=== PATIENT | female | born 1930 | race Caucasian/White ===

== ENCOUNTER 2018-12-22 20:36 | Inpatient (IN) ==
[2018-12-22] MEDS ORDERED: APRESOLINE IV ONE (21:03)
[2018-12-22] MEDS ORDERED: CATAPRES PO ONE (21:33)
[2018-12-22] MEDS ORDERED: ZOFRAN IV ONE (21:34)
[2018-12-22] MEDS ORDERED: DILAUDID IV ONE (21:34)
[2018-12-22 21:36] LABS: BASO# 0.02 X1000 (0.0-0.2); BASO% 0.2 % (0.0-0.8); EOS# 0.09 X1000 (0.0-0.7); EOS% 0.8 % (0.0-10.0); HEMATOCRIT 41.5 % (37.0-47.0); HEMOGLOBIN 13.6 g/dL (12.0-16.0); IMM GRAN# 0.04 X1000 (0.0-0.04); IMM GRAN% 0.3 % (0.0-0.5); LYMPH# 1.05 X1000 (1.2-3.4); LYMPH% 8.9 % (20.5-51.1); MCH 26.9 PG (27-31); MCHC 32.8 g/dL (33-37); MCV 82.2 FL (81-99); MONO# 0.46 X1000 (0.11-0.59); MONO% 3.9 % (1.7-9.3); MPV 9.7 FL (7.4-10.4); NEUT# 10.17 X1000 (1.4-6.5); NEUT% 85.9 % (42.2-75.2); PLT 161 X1000 (130-400); RBC 5.05 XMIL (4.2-5.4); RDW 14.1 % (11.5-14.5); WBC 11.83 X1000 (4.8-10.8)
[2018-12-22 21:38] LABS: INR 0.88; PROTIME 12.6 Seconds (11.0-16.0)
[2018-12-22 21:46] LABS: ALB/GLOB RATIO 1.3; CALCIUM 9.3 mg/dL (8.8-10.2); CREATININE 1.1 mg/dL (0.5-0.9); POTASSIUM 3.6 mmol/L (3.5-5.1); TOTAL BILIRUBIN 0.21 mg/dL (0.20-1.00); TOTAL PROTEIN 7.1 g/dL (6.3-8.3)
[2018-12-22] MEDS ORDERED: CATAPRES ONE (21:55)
[2018-12-22 21:57] LABS: PTT HEPARIN PROTOCOL 26.9 Seconds
[2018-12-22 22:56] LABS: URINE SOURCE CATH
--- NOTE | 2018-12-22 22:57 | PROVIDER DOCUMENTATION ---
This chart was entered by Bernie Ridley Scribe, acting as scribe for Gurpreet Scott MD. HPI-Musculoskeletal Pain/Inj - GENERAL Chief Complaint: Hip Injury Stated Complaint: fall/hip Time Seen by Provider: 12/22/18 20:58 Source: patient, family, EMS - HX OF PRESENT ILLNESS-MUSKULOSKELTAL Nature of Presenting Problem: 88 yo f, daughter as historian presents with cc of left hip pain.Pt was at snf and fell hurt left leg, sore abd, left flank, ex rot left leg, poss hip fracture. has hx of dementia, 4xbypass, diabetic, and has pacemaker. bp was 250/111 on arrival. Quality of Pain: reports: aching Severity in ED: mild Onset/Duration: 1 hour ago Timing: still present Any recent injury?: Yes (fell) Locality of [place]urance: Other ([place]) Similar Symptoms Previously?: No - FALL INJURY Location of Pain/Injury: reports: pelvis (left leg rot, hip), lower body Pain Radiation: reports: flank Reason for Fall: reports: other (fall btw wheelchair and bed) Symptoms prior to fall:: reports: none Loss of Consciousness: no loss of consciousness Injury Associated Symptoms: reports: joint pain - BACK & NECK PAIN/INJURY Context / Method of Injury: reports: fall History of Chronic Neck or Back Pain?: No - TRUNK INJURY Location of Injury(s)/Pain: reports: pelvis Context / Method of Injury: reports: fall - HIP/PELVIS PAIN/INJURY Hip Pain Location: reports: hip (L), pelvis Pain Radiation: reports: abdomen, flank Context / Method of Injury: reports: fall Review of Systems - Adult - REVIEW OF SYSTEMS - ADULT Constitutional: reports: no symptoms reported Eyes: reports: no symptoms reported Ears, Nose, Mouth & Throat: reports: no symptoms reported Cardiovascular: reports: no symptoms reported Respiratory: reports: no symptoms reported Gastrointestinal: reports: no symptoms reported Genitourinary: reports: no symptoms reported Musculoskeletal: reports: see HPI, bone pain, joint pain. denies: back pain, muscle aches, neck pain Integumentary: reports: no symptoms reported Neurological: reports: no symptoms reported Psychiatric: reports: no symptoms reported Endocrine: reports: no symptoms reported Hematologic/Lymphatic: reports: no symptoms reported Allergic/Immunologic: reports: no symptoms reported All Other Systems: Reviewed and Negative Past History - Adult - PAST MEDICAL HISTORY-ADULT Review of Records: reports: Nursing Assessment Review Major Childhood Illnesses: reports: denies history Cardiovascular: reports: CAD Respiratory: reports: COPD Gastrointestinal: reports: denies history Obstetrical/Gynecological: reports: denies history Genitourinary: reports: other (UTIs) Musculoskeletal: reports: denies history Neurological: reports: dementia Psychiatric: reports: denies history Endocrine/Immune: reports: Diabetes Other Conditions: reports: denies history - IMMUNIZATION STATUS Childhood Immunizations: See Nurse Assessment Flu Vaccine: See Nurse Assessment - FAMILY HISTORY Family History: reviewed, not pertinent Physical Exam-Injury Related - Physical Exam-Injury Related Exam Limited by: Dementia Initial Vital Signs Reviewed: Yes (bp 250/111) General Appearance: mild distress Eyes: PERRL/EOMI, pink conjunctivae Head, Ears, Nose, Mouth & Throat: normocephalic/atraumatic, moist mucous membranes, normal ENT inspection Neck: non-tender, full range of motion, supple Respiratory: chest non-tender, lungs clear, normal breath sounds, no pleuratic chest pain, no respiratory distress Cardiovascular: regular rate, rhythm, no edema, no gallop, no JVD, no murmur Chest/Breast: deferred Abdominal Exam: normal bowel sounds, soft, no organomegaly, no pulsatile mass, tenderness (generalized mild) Female Genitalia/Pelvic Exam: deferred Male Genitalia: deferred Rectal Exam: deferred Hemoccult Exam: deferred Back Exam: normal inspection, no CVA tenderness, no vertebral tenderness Extremity: tenderness (pelvis and left hip), other (external rotation to left leg). negative: erythema, swelling Integumentary: normal color, warm/dry Neurologic: grossly normal Psych/Mental Status: normal mood/affect, normal thought content, normal thought process, oriented x 3 (15) - Glascow Coma Score Best Eye Response (Mil[place]): (4) open spontaneously Best Verbal Response ([place]): (5) oriented Best Motor Response ([place]): (6) obeys commands [place]ro Total: 15 Progress - PLAN OF CARE/RESULTS Progress/Plan/Lab Results: Vital Signs - 8 hr 12/22/18 20:52 Temperature 97.6 F Pulse Rate 101 H Respiratory Rate 17 Blood Pressure 250/111 O2 Sat by Pulse Oximetry 96 Laboratory Results - last 24 hr 12/22/18 12/22/18 12/22/18 21:14 21:14 21:14 WBC 11.83 H RBC 5.05 Hgb 13.6 Hct 41.5 MCV 82.2 MCH 26.9 L MCHC 32.8 L RDW Std Deviation 14.1 Plt Count 161 MPV 9.7 Immature Gran % (Auto) 0.3 Neut % (Auto) 85.9 H Lymph % (Auto) 8.9 L [place] % (Auto) 3.9 Eos % (Auto) 0.8 Baso % (Auto) 0.2 Immature Gran # (Auto) 0.04 Neut # (Auto) 10.17 H Lymph # (Auto) 1.05 L [place] # (Auto) 0.46 Eos # (Auto) 0.09 Baso # (Auto) 0.02 PT INR PTT (Heparin Protocol) Sodium 137 Potassium 3.6 Chloride 96 L Carbon Dioxide 30 Anion Gap 11 BUN 15 Creatinine 1.1 H Estimated GFR/1.73 m2 47 BUN/Creatinine Ratio 14 Glucose 293 H Calculated Osmolality 285 Calcium 9.3 Total Bilirubin 0.21 AST 13 ALT 9 L Alkaline Phosphatase 122 H Total Protein 7.1 Albumin 4.0 Globulin 3.1 Albumin/Globulin Ratio 1.3 Blood Type O POSITIVE Antibody Screen NEGATIVE 12/22/18 21:14 WBC RBC Hgb Hct MCV MCH MCHC RDW Std Deviation Plt Count MPV Immature Gran % (Auto) Neut % (Auto) Lymph % (Auto) [place] % (Auto) Eos % (Auto) Baso % (Auto) Immature Gran # (Auto) Neut # (Auto) Lymph # (Auto) [place] # (Auto) Eos # (Auto) Baso # (Auto) PT 12.6 INR 0.88 PTT (Heparin Protocol) 26.9 Sodium Potassium Chloride Carbon Dioxide Anion Gap BUN Creatinine Estimated GFR/1.73 m2 BUN/Creatinine Ratio Glucose Calculated Osmolality Calcium Total Bilirubin AST ALT Alkaline Phosphatase Total Protein Albumin Globulin Albumin/Globulin Ratio Blood Type Antibody Screen Orders Category Date Time Status Land Cath Insertion ORDERED Care 12/22/18 22:50 Active CHEST-1 VIEW [RAD] Stat Exams 12/22/18 22:14 Taken XRAY PELVIS W/HIP 2-3VW LT [RAD] Stat Exams 12/22/18 20:55 Taken CBC WITH ELECTRONIC DIFF [HEME] Stat Lab 12/22/18 21:14 Completed COMPREHENSIVE METABOLIC PANEL [CHEM] Stat Lab 12/22/18 21:14 Completed PROTIME WITH INR [COAG] Stat Lab 12/22/18 21:14 Completed PTT HEPARIN PROTOCOL [COAG] Stat Lab 12/22/18 21:14 Completed TYPE & SCREEN [BBK] Stat Lab 12/22/18 21:14 Completed URINALYSIS [URINALYSIS] Stat Lab 12/22/18 22:46 Received Clonidine [Catapres] Med 12/22/18 21:55 Discontinued 0.1 mg .ROUTE .STK-MED ONE Clonidine [Catapres] Med 12/22/18 21:33 Discontinued 0.1 mg PO NOW ONE Hydralazine [Apresoline] Med 12/22/18 21:03 Discontinued 20 mg IV NOW ONE Hydromorphone [Dilaudid] Med 12/22/18 21:34 Discontinued 1 mg IV NOW ONE Ondansetron [Zofran] Med 12/22/18 21:34 Discontinued 4 mg IV NOW ONE EKG [EKG] Stat Ther 12/22/18 20:49 Ordered 2237 ortho paiged Result Diagrams: 12/22/18 21:14 12/22/18 21:14 - REASSESSMENT Reassessment #1 Time Reassessed: 21:30 (Gave Hydralizine 20 mg IV, BP checked again 218/114. ) Status: improving Reassessment #2 Time Reassessed: 22:18 (156/90 bp improving) - EKG 1 Time of EKG reading by physician:: 20:58 EKG Read and Signed by:: Gurpreet Scott EKG Interpretation (*Must complete 3 of following elements*): Abnormal ( prolonged qt) Rate: 95 Rhythm: sinus rhythm w/1st deg AV block MI Interval: normal ST Wave: non-specific ST changes - XRAY 1 XRAY: Bilateral XRAY Study: Hip Impression: Abnormal XRAY Interpretation: left intertrochanteric fx 2 XRAY: Bilateral XRAY Study: Hip Impression: Abnormal (inferior pubic rami frac) 3 XRAY: Bilateral XRAY Study: Chest Impression: Normal XRAY Interpretation: no acute findings - CONSULTS/PCP/HOSPITALIST Notification #1 *Consult/PCP/Hospitalist*: dr alfaro Time Discussed: 22:20 Consult Disposition: Admit #2 Consult: Dr. Nolasco Time Discussed: 22:55 Consult Disposition: Admit Departure - Departure Date of Disposition Decision: 12/22/18 Time of Disposition Decision: 22:20 DIAGNOSIS: HTN (hypertension) Intertrochanteric fracture of left hip Qualifiers: Encounter type: initial encounter Fracture type: closed Fracture alignment: displaced Qualified Code(s): S72.142A - Displaced intertrochanteric fracture of left femur, initial encounter for closed fracture Pubic ramus fracture Qualifiers: Encounter type: initial encounter Fracture type: closed Laterality: left Qualified Code(s): S32.592A - Other specified fracture of left pubis, initial encounter for closed fracture Disposition: ADMITTED INPATIENT 09 Certified Medical Emergency: Emergent Condition: Stable Referrals and Follow-Ups: Eric Tejada MD [Primary Care Provider] - - Critical Care Note This patient required my direct & personal management of CC.: No Attestation - Physician/ HUNTER Attestation Patient care was provided by Advanced Practice Provider:: No The physician spent face to face time with patient:: Yes Advanced Practice Provider documentation review:: Supervising physician onsite and consulted in the evaluation and care of this patient. The physician did have a face to face encounter with the patient. This chart was documented by the indicated scribe, (Bernie Ridley Scribe) and accurately reflects the services I performed and decisions made by me, Gurpreet Scott MD, as attested by the provider's signature.
[2018-12-22 23:07] LABS: UR EPITHELIAL CELLS <10 /HPF (<10); URINE BACTERIA 4+ /HPF; URINE RBC <10 /HPF (<10); URINE WBC <10 /HPF (<10)
[2018-12-22] MEDS ORDERED: TYLENOL PO PRN (23:08)
[2018-12-22] MEDS ORDERED: LOVENOX SUBQ SCH (23:15)
[2018-12-22] MEDS ORDERED: NS 1,000 ML IV SCH (23:15)
[2018-12-22 23:23] LABS: COLOR YELLOW; GLUCOSE URINE 200 mg/dL (NEGATIVE); TURBIDITY URINE CLEAR (CLEAR)
[2018-12-22 23:24] LABS: BILIRUBIN URINE NEGATIVE (NEGATIVE); BLOOD URINE NEGATIVE (NEGATIVE); KETONE URINE NEGATIVE (NEGATIVE); LEUKOCYTES URINE NEGATIVE (NEGATIVE); NITRITE URINE NEGATIVE (NEGATIVE); PROTEIN URINE NEGATIVE (NEGATIVE); SP GRAVITY URINE 1.005; UROBILINOGEN URINE NORMAL (NORMAL)
[2018-12-23] MEDS ORDERED: OFIRMEV 1000 MG/ISOTONIC SOLN 1,000 MG/100 ML BOTTLE IV ONE (01:16)
--- NOTE | 2018-12-23 01:44 | HISTORY AND PHYSICAL ---
PRIMARY CARE PHYSICIAN: Eric Tejada MD. PRESENTING COMPLAINT: Status post fall. HISTORY OF PRESENTING COMPLAINT: Ms. Chapman is an 88-year-old female with history of advanced dementia who lives at [facility]. Also has a history of diabetes mellitus, dyslipidemia, hypothyroidism, coronary artery disease status post CABG. The patient presented to the emergency department after she called out for help in her room. Upon checking on her she was noted to be on the floor, and was not able to get from the floor. Of note, Ms. Chapman had a left knee fracture somewhere in December of 2017, which was treated medically. Subsequently she has been wheelchair bound. It is presumed that she was getting out of the wheelchair to go and use the restroom, and she could not make it, fell down and sustained the injury to her left hip. The patient was brought in, was evaluated and an x-ray of the hip did show a left intertrochanteric fracture with some displacement. We have been consulted for admission, and Orthopedics has also been consulted. I have been made to understand that Dr. Nolasco is aware about this case. The patient herself is not able to give me the history, it was the daughter who was at the bedside at the time of the encounter who gave me all the history. PAST MEDICAL HISTORY: 1. Multiple strokes in the past. 2. Carotid stenosis, right side is completely occluded. 3. 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 4. Coronary artery disease status post CABG. 5. Status post pacemaker. 6. Dyslipidemia. 7. Hypertension. 8. Hypothyroidism. 9. History of meningioma. 10. Restless leg syndrome. 11. Sick sinus syndrome. CURRENT MEDICATIONS: Include: 1. Simvastatin 20 mg p.o. at bedtime. 2. Imdur 30 mg p.o. daily. 3. Citalopram 20 mg daily. 4. Cyanocobalamin 1000 mcg IM p.r.n. 5. Pramipexole 0.125 p.o. at bedtime. 6. Iron sulfate 325 p.o. daily. 7. Lansoprazole 30 mg p.o. daily. 8. Memantine 10 mg b.i.d. 9. Vitamin D 1 tab daily. 10. Synthroid 175 mcg p.o. daily. 11. Aspirin 325 p.o. daily. 12. Amitriptyline 50 mg p.o. at bedtime. 13. Donepezil 10 mg p.o. at bedtime. 14. Losartan 100 mg daily. PAST SURGICAL HISTORY: 1. Cholecystectomy. 2. CABG. 3. Status post pacemaker. ALLERGIES: Unknown. SOCIAL HISTORY: The patient is currently a resident of an assisted living facility ([facility]) at the Dementia Unit. Denies any smoking, alcohol use or illicit drugs. REVIEW OF SYSTEMS: A 12-point review of system was conducted with the daughter since patient is not able to a history because of advanced dementia. However, the daughter denies any prior complaints, except that the patient was found down. Ms. Chapman also denies any chest pain, any shortness of breath, any abdominal pain. No headaches. OBJECTIVE: Vital signs: Blood pressure is currently 170/80, pulse 101, respirations 17, temperature is 97.6 degrees. General: Mr. Chapman is an 88-year-old female, she was in bed. She did not seem to be in any cardiopulmonary distress. HEENT: Mucosa slightly mucosa is pink, slightly dry. Anicteric. Acyanotic. Neck: Supple. There was no JVD. Trachea was midline. There was no thyromegaly. Respiratory: Good air entry bilaterally. No crepitations. No rhonchi. Cardiovascular: Regular rate and rhythm. There was no murmurs, no rubs, no gallops. [place] beat was at the 5th intercostal space, midclavicular line. Abdomen: Soft, nontender. Bowel sounds were present. There is no hepatosplenomegaly. There is an old lower umbilical surgical scar consistent with a previous laparoscopic surgery. Land catheter was in place. Extremities: No pedal edema. Distal pulses were present. The left lower extremity has an external rotation to weight and it is extremely tender to move. Neurologic: The patient is awake, alert and oriented to person, but disoriented to place and time. She does not seem to have any neurological deficit. Sensation seems to be intact. Cranial nerves II-XII have been grossly examined. LABORATORY DATA: WBC is 11.83, hemoglobin is 13.6, platelet count 161,000. Chemistry was also reviewed, sodium is 137, potassium is 3.6, chloride 96, bicarbonate is 30, creatinine is 1.1. IMAGING STUDIES: 1. A hip x-ray has been done, we are still pending the official report but it appears the patient has a left intertrochanteric fracture with angulation. There is also evidence of fecal impaction. 2. A chest x-ray shows normal inspiration. There is no fluid, no pleural effusions, and I do not see any obvious consolidation. 3. There is sternotomy wires in place, and there is a left side generator pocket for the pacemaker. 4. EKG shows normal sinus rhythm. They did not see any acute changes. ASSESSMENT: Ms. Chapman is an 88-year-old female with extensive past medical history including multiple strokes, coronary artery bypass graft, hypertension, diabetes and end-stage dementia at [facility], who sustained a mechanical fall and hit the left side of her hip and subsequently has developed a fracture. She has been admitted for orthopedic evaluation and management. 1. Status post fall with x-ray showing a left hip intertrochanteric fracture, there seems to be some particles of bone in there as well as some angulation. Orthopedics has been consulted and will be pending their evaluation to go from there. 2. History of coronary artery disease status post chronic artery bypass graft. The patient is completely stable. Denies any chest pain. Echocardiogram is unremarkable for any acute changes. We will continue with her home medications. 3. Uncontrolled hypertension. I think part of it is because of pain and adrenergic surge. We will control the pain, restart the patient on her home medications and continue to monitor this. 4. Clinical volume depletion. We will start the patient on gentle hydration. 5. Dyslipidemia. The patient has been started on her medication. 6. 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 7. Restless leg syndrome. The patient is on pramipexole. PLAN: In general I think Ms. Chapman is fairly stable. She does have a lot of comorbidities and she is advanced in age as well which all will put her at a high perioperative mortality; however, her left intertrochanteric hip fracture is acute and all her comorbidities seem to be fairly stable, so will recommend surgery to proceed and we have explained her surgical risk to her daughter. We will also notify the patient's PCP, Dr. Eric Tejada in the morning so that he will resume care. cc: Chris Noonan MD
[2018-12-23] MEDS: MORPHINE IV PRN ×3 (02:04→09:57)
[2018-12-23] MEDS: SYNTHROID PO SCH (06:30)
[2018-12-23 06:36] LABS: BASO# 0.01 X1000 (0.0-0.2); BASO% 0.1 % (0.0-0.8); EOS# 0.01 X1000 (0.0-0.7); EOS% 0.1 % (0.0-10.0); HEMATOCRIT 38.2 % (37.0-47.0); HEMOGLOBIN 12.4 g/dL (12.0-16.0); IMM GRAN# 0.05 X1000 (0.0-0.04); IMM GRAN% 0.3 % (0.0-0.5); LYMPH# 1.41 X1000 (1.2-3.4); LYMPH% 8.8 % (20.5-51.1); MCHC 32.5 g/dL (33-37); MONO# 0.61 X1000 (0.11-0.59); MONO% 3.8 % (1.7-9.3); MPV 9.8 FL (7.4-10.4); NEUT# 13.88 X1000 (1.4-6.5); NEUT% 86.9 % (42.2-75.2); PLT 168 X1000 (130-400); RDW 14.2 % (11.5-14.5); WBC 15.97 X1000 (4.8-10.8)
[2018-12-23 06:59] LABS: ALB/GLOB RATIO 1.4; ALBUMIN 3.6 g/dL (3.5-5.0); CALCIUM 9.3 mg/dL (8.8-10.2); CREATININE 1.1 mg/dL (0.5-0.9); TOTAL BILIRUBIN 0.3 mg/dL (0.20-1.00); TOTAL PROTEIN 6.2 g/dL (6.3-8.3)
--- NOTE | 2018-12-23 06:59 | Diag Imaging Result Doc PS360 ---
EXAM: CHEST-1 VIEW 12/22/2018 HISTORY: fall TECHNIQUE: AP portable at 2216 COMMENT: Compared to the previous study of 10/27/2018 the inspiration is better. There are some minimal atelectatic or fibrotic changes in the left lung which were apparently present previously. There are sternotomy wires and multiple surgical clips and a left transvenous pacemaker is present with leads in the right atrium and ventricle. IMPRESSION: No evidence of acute disease. Electronically signed by Talon Brambila 12/23/2018 6:58 AM
--- NOTE | 2018-12-23 07:05 | Diag Imaging Result Doc PS360 ---
EXAM: XRAY PELVIS W/HIP 2-3VW LT 12/22/2018 HISTORY: fall, injury TECHNIQUE: AP pelvis and left hip two views COMMENT: There is a comminuted intertrochanteric fracture on the left. There is a large amount of stool in the rectum. IMPRESSION: Left intertrochanteric fracture. Fecal impaction. Electronically signed by Talon Brambila 12/23/2018 7:04 AM
[2018-12-23 07:10] LABS: MAGNESIUM 1.2 mg/dL (1.5-2.7)
[2018-12-23 07:12] LABS: BANDS 2 % (0-1); LYMPHS 8 % (21-51); MONO 2 % (1-9); SEGS 88 % (42-75)
--- NOTE | 2018-12-23 07:15 | EKG Report ---
Test Performed on : 12/22/2018 8:58:12 PM Test Reason : FALL Blood Pressure : / mmHG Vent. Rate : 095 BPM Atrial Rate : 095 BPM P-R Int : 238 ms QRS Dur : 086 ms QT Int : 384 ms P-R-T Axes : 078 005 052 degrees QTc Int : 482 ms Sinus rhythm. with 1st degree AV block. Nonspecific T wave abnormality Prolonged QT Abnormal ECG When compared with ECG of 14-SEP-2018 08:11, premature atrial complexes. are no longer present Unconfirmed Result
--- NOTE | 2018-12-23 07:24 | EKG Report ---
Test Performed on : 12/23/2018 07:20:54 AM Test Reason : chest pain Blood Pressure : / mmHG Vent. Rate : 107 BPM Atrial Rate : 107 BPM P-R Int : 250 ms QRS Dur : 078 ms QT Int : 322 ms P-R-T Axes : 040 024 135 degrees QTc Int : 429 ms Sinus tachycardia. with 1st degree AV block. Nonspecific T wave abnormality Abnormal ECG When compared with ECG of 22-DEC-2018 20:58, (Unconfirmed) Nonspecific T wave abnormality now evident in Inferior leads Confirmed by Aide WEST, Dirk Garza ([id number]) on 12/23/2018 1:44:50 PM
--- NOTE | 2018-12-23 08:16 | CONSULTATION ---
DATE OF CONSULTATION: 12/23/2018 CHIEF COMPLAINT: Left hip pain. HISTORY OF PRESENT ILLNESS: Ms. Chapman is an 88-year-old female who unfortunately fell yesterday and ended up presenting to the emergency department with left hip pain. She was diagnosed with a hip fracture and admitted per the hospitalist service. Most of her pain is in the left hip. She denies any pain in the bilateral upper extremities or right lower extremity. PAST MEDICAL HISTORY: Past medical history was obtained through the medical records. Multiple strokes, carotid stenosis, dementia, coronary artery disease, status post coronary artery bypass grafting, status post pacemaker placement, hypertension. PAST SURGICAL HISTORY: Pacemaker and coronary artery bypass grafting. CURRENT MEDICATIONS: Per the medical record. ALLERGIES: No known drug allergies. SOCIAL HISTORY: She lives in an assisted living facility. She denies any smoking or alcohol use. REVIEW OF SYSTEMS: Positive for left hip pain. All other systems are essentially negative. PHYSICAL EXAMINATION: General: Elderly appearing female in mild distress. Head and Neck: Normocephalic, atraumatic. Respirations: She has nonlabored breathing. Cardiovascular: Regular pulse. Gastrointestinal: Abdomen is nondistended. Extremities: On left lower extremity exam, she has tenderness to palpation at the left hip. She is able to dorsiflex and plantar flex the ankle and the toes well. She has good sensation to light touch to the toes and 1+ DP pulse. No tenderness to palpation to the right lower extremity or bilateral upper extremities. IMAGING: Pelvis x-rays show a left intertrochanteric hip fracture with some displacement and a left inferior pubic rami fracture. ASSESSMENT: Left intertrochanteric hip fracture. PLAN: I discussed with Ms. Chapman about her fracture. I discussed with her the need for operative intervention. This will be a left trochanteric femoral nailing. Her daughter, Jeaneth Piper, has medical power of corporate giving manager. I spoke with her on the phone this morning. I discussed with her the procedure, risks, benefits, and potential complications. Risks include, but are not limited to infection, wound healing problems, damage to nerves, arteries, veins, numbness, malunion, nonunion, hardware related issues, continued pain, DVT, and anesthesia related risks. After discussing these with the patient, she said that she wanted to talk with Dr. Eric Tejada this morning, which I think is very reasonable. We will tentatively put everything on the schedule right now for noon. This will be a left trochanteric femoral nailing. If everything goes well, then she will be weightbearing as tolerated after surgery. She is n.p.o. now. cc: MD Eric Cool MD
[2018-12-23] MEDS: NAMENDA PO SCH ×2 (11:13→23:02)
[2018-12-23] MEDS: IMDUR PO SCH (11:13)
[2018-12-23] MEDS: ASPIRIN PO SCH (11:13)
[2018-12-23] MEDS: COZAAR PO SCH (11:14)
[2018-12-23] MEDS: FISH OIL CONCENTRATE PO SCH (11:14)
[2018-12-23] MEDS: CELEXA PO SCH (11:14)
[2018-12-23] MEDS ORDERED: DIPRIVAN 1% ONE (13:00)
[2018-12-23] MEDS ORDERED: XYLOCAINE-MPF 2% ONE (13:00)
[2018-12-23] MEDS ORDERED: NEOSTIGMINE ONE (13:03)
[2018-12-23] MEDS ORDERED: ROBINUL ONE (13:22)
[2018-12-23] MEDS ORDERED: KEFZOL 2 GM/D5W 2 GM/50 ML IVPB ONE (13:42)
[2018-12-23] MEDS ORDERED: FENTANYL ONE (14:24)
[2018-12-23] MEDS ORDERED: NS 1,000 ML ONE (15:25)
--- NOTE | 2018-12-23 15:29 | OPERATIVE NOTE ---
PROCEDURE DATE: 12/23/2018 PREOPERATIVE DIAGNOSIS: Left comminuted intertrochanteric femur fracture. POSTOPERATIVE DIAGNOSIS: Left comminuted intertrochanteric femur fracture. PROCEDURE: Intramedullary nailing left femur with a Synthes TFN size 11 x 400 mm nail. SURGEON: Jose Han MD. PATHOLOGIST: CHERELLE Lyle. ANESTHESIA: General. IV FLUIDS: 1000 mL lactated Ringer's. ESTIMATED BLOOD LOSS: 30 mL. COMPLICATIONS: None. INDICATION: The patient is a pleasant, 88-year-old female, who is status post fall yesterday She presented to the emergency room. X-rays revealed a left intertrochanteric femur fracture. Given the patient's findings, recommendation to proceed with intramedullary nailing of the left femur was offered. Risks and benefits of surgery were explained, including the risks of anesthesia, , bleeding, infection, failure to relieve pain, postoperative stiffness, nerve injury, blood clots and other imponderables. All questions answered. Patient and family agree with treatment plan. DETAILS OF OPERATION: The patient was taken to the operating room and underwent general anesthesia. After adequate anesthesia was obtained, she is placed supine on the operating table. The left lower extremity provisional reduction was then obtained. Good alignment confirmed with C- arm visualization. The left lower extremity was subsequently prepped and draped in usual sterile fashion. Approximately 3 fingerbreadths proximal to the lesser trochanter a lateral incision was made. Blunt dissection was performed to the tip of the greater trochanter. A guide pin was then placed in position and advanced in the intramedullary canal confirming good position in both AP and lateral projections. The proximal cortex was reamed and the guide pin was then removed. A ball-tip guide pin was then placed into the intramedullary canal and the length of the nail was determined to be 400 mL. A 12 mm reamer was then passed. An 11 x 400 mm Synthes TFN nail was then advanced. The ball-tipped guide pin was removed. Had good position in both AP and lateral projections. Using the outrigger guide, a lateral incision was made and the guide was then placed along the lateral proximal cortex. Guide pins then placed across the fracture site into the femoral neck and head. Good position was confirmed with C-arm visualization. Lateral cortex was drilled. A size 100 mm helical blade was then advanced and had good purchase. The proximal set screw was tightened in standard fashion. Good alignment was confirmed with AP and lateral projections. Attention then turned to the distal femur where using perfect cold springs technique, 2 distal locking screws were placed from laterally to medially. Had good positioning with C-arm visualization. Final C-arm visualization revealed good alignment of the fracture and good position the hardware. The wounds were copiously irrigated out. #1 Vicryl to repair the deep fascia of the proximal wound followed by 2-0 Vicryl to proximal wounds and skin antonio in all the wounds. Adaptic, sterile 4 x 4, ABD pad, and tape applied to the wounds. The patient tolerated the procedure well with no complications. Transferred to recovery room in stable condition. cc: MD Eric Thomas MD
[2018-12-23] MEDS: MORPHINE ONE ×3 (15:38→15:47)
[2018-12-23] MEDS ORDERED: OXY IR PO PRN (16:19)
[2018-12-23] MEDS ORDERED: MILK OF MAGNESIA PO PRN (16:19)
[2018-12-23] MEDS ORDERED: ZOFRAN IV PRN (16:19)
[2018-12-23] MEDS ORDERED: MORPHINE IV PRN (16:19)
[2018-12-23] MEDS ORDERED: HALDOL IV PRN (16:19)
[2018-12-23] MEDS ORDERED: MAGNESIUM SULFATE 1 GM/D5W 1 GM/100 ML IVPB IV ONE (18:39)
[2018-12-23] MEDS ORDERED: ZOFRAN ODT PO PRN (18:41)
--- NOTE | 2018-12-23 19:41 | PROGRESS NOTE ---
DATE: 12/23/2018 SUBJECTIVE: Patient's chart was reviewed. In summary, patient was admitted yesterday evening after experiencing a fall, resulting in a left hip fracture. The patient was originally seen this morning. At that time, pain was reasonably controlled. Surgical intervention was scheduled. This afternoon, patient was taken for an intramedullary nailing of the left femur by Dr. Han. Patient tolerated this procedure well. This evening, patient is somewhat somnolent as she has recently been moved from postoperative care. She notes pain to be controlled. She denies nausea, vomiting, shortness of breath, or chest discomfort. OBJECTIVE: VITAL SIGNS: T-max 100.2, heart rate 106 to 113. Respirations 12-15. Blood pressure 105-141 over 56-61. General: Elderly, no acute distress. Cardiovascular: Tachycardic regular rhythm. No significant murmurs, rubs, or gallops. Pulmonary: Clear to auscultation anteriorly. Abdomen: Soft, nontender, nondistended. Positive bowel sounds. Extremities: No significant clubbing, cyanosis, or edema. Dermatologic: Evaluation reveals no evidence of rash. LABORATORY DATA: White blood cell count 15.97, hemoglobin 12.4, hematocrit 38.2, platelet count 168,000. PT 14.0. INR is 1.00. Sodium 139, potassium 4.0, chloride 97, bicarb 26, BUN 16, creatinine 1.1, glucose 305. Calcium 9.3, magnesium 1.2. Total bilirubin 0.30. Total protein 6.2, albumin 3.6, alkaline phosphatase 107, AST 13, ALT 9. ASSESSMENT AND PLAN: 1. Left hip fracture-patient is status post surgical intervention by Dr. Han. We will defer postoperative management to his discretion. At present time, pain is controlled. 2. Hypertension-we will continue patient on her home regimen. We will titrate medications as necessary. 3. History of stroke-we will continue the patient on optimum medical management. Symptoms are stable. 4. Chronic obstructive pulmonary disease-we will continue patient on DuoNeb. 5. Dementia-the patient's symptoms are controlled on her home regimen. We will continue this. 6. Hypothyroidism-we will continue patient on replacement. 7. Hypomagnesemia-we will replete this evening. 8. Leukocytosis-I suspect this is secondary to demargination. We will follow for evidence of infection. 9. Diabetes-we will initiate sliding scale insulin. DISPOSITION: At this point, patient continues to require snf care in a hospital setting. We will plan discharge to rehabilitation once appropriate. cc: Eric Tejada MD
[2018-12-23] MEDS: NS 1,000 ML IV SCH (22:58)
[2018-12-23] MEDS: KEFZOL 1 GM/D5W 1 GM/50 ML IVPB IV SCH (22:59)
[2018-12-23] MEDS: MIRAPEX PO SCH (23:03)
[2018-12-23] MEDS: ARICEPT PO SCH (23:03)
[2018-12-23] MEDS: HUMALOG SUBQ SCH (23:04)
[2018-12-23] MEDS ORDERED: FERROUS SULFATE PO SCH (23:08)
[2018-12-23] MEDS: TYLENOL PO SCH (23:08)
[2018-12-24] MEDS: COLACE PO SCH (02:49)
[2018-12-24] MEDS: PERIDEX MT SCH ×2 (02:50→08:23)
[2018-12-24] MEDS: ELAVIL PO SCH (02:50)
[2018-12-24] MEDS: VITAMIN D PO SCH (02:51)
[2018-12-24] MEDS: ZOCOR PO SCH (02:51)
[2018-12-24 04:44] LABS: URINE SOURCE CATH
[2018-12-24 04:48] LABS: BILIRUBIN URINE NEGATIVE (NEGATIVE); BLOOD URINE LARGE (NEGATIVE); COLOR YELLOW; GLUCOSE URINE NEGATIVE (NEGATIVE); KETONE URINE NEGATIVE (NEGATIVE); LEUKOCYTES URINE LARGE (NEGATIVE); NITRITE URINE NEGATIVE (NEGATIVE); PH URINE 5.5; PROTEIN URINE 50 mg/dL (NEGATIVE); SP GRAVITY URINE 1.024; TURBIDITY URINE HAZY (CLEAR); UROBILINOGEN URINE NORMAL (NORMAL)
[2018-12-24 04:49] LABS: UR EPITHELIAL CELLS <10 /HPF (<10); URINE BACTERIA NEGATIVE /HPF; URINE RBC TNTC /HPF (<10); URINE WBC TNTC /HPF (<10)
[2018-12-24] MEDS: KEFZOL 1 GM/D5W 1 GM/50 ML IVPB IV SCH (06:35)
[2018-12-24] MEDS: PRILOSEC PO SCH (06:35)
[2018-12-24] MEDS: SYNTHROID PO SCH (06:35)
[2018-12-24] MEDS: XARELTO PO SCH (06:36)
[2018-12-24] MEDS: TYLENOL PO SCH ×2 (06:36→12:12)
[2018-12-24] MEDS: HUMALOG SUBQ SCH ×3 (06:36→16:02)
--- NOTE | 2018-12-24 06:42 | PROGRESS NOTE ---
DATE: 12/24/2018 SUBJECTIVE: The patient is a pleasant 88-year-old female, who is 1 day status post intramedullary nailing of the left femur. She is currently resting comfortably. She is confused this morning. OBJECTIVE: The left lower extremity dressing is intact. Her calf is soft. LABS: Pending. IMPRESSION: Postoperative day #1 status post intramedullary nailing of the left femur. PLAN: At this point, will attempt mobilization with physical therapy with weightbearing as tolerated left lower extremity. Receiving Tank Operator had been consulted for discharge planning. We will await her lab work. cc: MD Eric Thomas MD
[2018-12-24 06:52] LABS: CALCIUM 8.3 mg/dL (8.8-10.2); CREATININE 1.2 mg/dL (0.5-0.9); POTASSIUM 3.9 mmol/L (3.5-5.1)
[2018-12-24] MEDS: DUONEB (A & A) INH SCH (07:23)
[2018-12-24] MEDS: NS 1,000 ML IV SCH ×2 (08:20→19:41)
[2018-12-24] MEDS: NAMENDA PO SCH (08:23)
[2018-12-24] MEDS: ASPIRIN PO SCH (08:23)
[2018-12-24] MEDS: CELEXA PO SCH (08:23)
[2018-12-24] MEDS: IMDUR PO SCH (08:23)
[2018-12-24] MEDS: COZAAR PO SCH (08:23)
[2018-12-24] MEDS: FERROUS SULFATE PO SCH (08:23)
[2018-12-24] MEDS: FISH OIL CONCENTRATE PO SCH (08:24)
[2018-12-24 08:53] LABS: HEMATOCRIT 29.7 % (37.0-47.0); HEMOGLOBIN 9.4 g/dL (12.0-16.0)
--- NOTE | 2018-12-24 19:29 | Diag Imaging Result Doc PS360 ---
EXAM: CT HEAD W/O CONTRAST INDICATION: AMS TECHNIQUE: This exam was performed using automated exposure control, adjustment of mA or kV according to patient size, and/or use of iterative reconstruction technique. COMPARISON: 09/28/2018 FINDINGS: There is significant motion artifact on the superiormost slices, which limits diagnostic quality here. There is stable encephalomalacia involving the right occipital and left parietal lobe. There are a couple of stable chronic lacunar infarcts involving the deep soliz matter bilaterally. There is also a focus of low attenuation in the external capsule on the left that that was not present on the previous study. This also could represent a chronic lacunar infarct that has developed during the interval. However, a subacute lacunar infarct cannot completely be excluded. There is no discrete intracranial mass, mass effect, or intracranial hemorrhage. There is mild ethmoid sinus mucosal disease on the left. Surrounding soft tissues and bony structures are essentially unremarkable, otherwise. IMPRESSION: 1.Multifocal encephalomalacia. 2.Focus of low attenuation in the external capsule on the left that was not present previously. Although it still may be chronic, a subacute lacunar infarct cannot completely be excluded. Electronically signed by Eric Ridley 12/24/2018 7:27 PM
--- NOTE | 2018-12-24 20:26 | PROGRESS NOTE ---
DATE: 12/24/2018 SUBJECTIVE: The patient was originally seen this morning. At that time, patient was noted to have an increase in her expressive aphasia. The patient also demonstrated a clinical change in her vision. I discussed case with patient's daughter. We agree to monitor through the day. Throughout the day, unfortunately, patient's condition continued to deteriorate. This evening, upon my arrival, patient is somnolent. She is interactive with maximum stimulation. She has had no evidence of fever, chills, nausea/vomiting, or shortness of breath. The patient's p.o. intake has been minimal. OBJECTIVE: Vital signs: T-max 99.6 degrees, heart rate 98 to 113, respirations 16 to 20, blood pressure 100 to 175 over 56 to 86. General: No acute distress. Cardiovascular: Regular rate and rhythm with no significant murmurs, rubs, or gallops. Pulmonary: Clear to auscultation bilaterally. Abdomen: Soft, nontender, nondistended. Positive bowel sounds. Extremities: No significant clubbing, cyanosis, or edema. Dermatologic: Evaluation reveals a dressed postoperative wound to the left hip. DIAGNOSTIC STUDIES: Hemoglobin 9.4, hematocrit 29.7. Sodium 140, potassium 3.9, chloride 102, bicarbonate 28, BUN 20, creatinine 1.2, glucose 183, calcium 8.3. Urinalysis revealed large leukocytes with too many to count white blood cells, but no bacteria. ASSESSMENT AND PLAN: 1. Left hip fracture. Patient is postoperative day number 1. We will continue postoperative orders per Dr. Han. 2. Alteration of mental status/somnolence. I am very concerned in this regard. CT scan was performed this evening, revealing multifocal encephalomalacia. Focus of low attenuation in the external capsule on the left that was not present previously suggested a chronic or subacute lacunar infarct. At this point, I cannot place all of her symptoms on this finding. I remain hopeful that her mental status change is post anesthesia. I discussed this in detail with patient's daughter. We will continue supportive care for now. 3. Abnormal urinalysis. Patient's urinalysis upon admission did not demonstrate evidence of infection. Urinalysis this morning suggested multiple white blood cells present. At this point, I am hesitant to attribute this to an infection, as there are no bacteria present. I am also hesitant to initiate empiric antibiotics, as patient recently was diagnosed with Clostridium difficile colitis. We will follow the patient's cultures. We will have a low threshold for starting empiric intervention, should she demonstrate evidence of infection, including fevers or hemodynamic instability. 4. Hypertension. The patient's blood pressure is labile, but reasonably controlled. We will continue her home regimen. 5. History of a recent stroke. We will continue to optimize the patient's medical management. As described above, patient's CT scan suggests a chronic or subacute stroke that was not present on previous CT scan. We will follow this. 6. Chronic obstructive pulmonary disease. We will continue patient on DuoNeb therapy. 7. Dementia. We will continue patient's home regimen. 8. Hypothyroidism. We will continue patient on replacement. 9. Hypomagnesemia. We will follow clinically. She was repleted yesterday evening. 10. Leukocytosis. This likely was secondary to demargination after her acute fall. We will plan to recheck levels in the a.m. 11. Diabetes. We will continue sliding scale insulin. DISPOSITION: At this point, patient continues to require care home care in a hospital setting. We will plan discharge to rehabilitation once appropriate. cc: Eric Tejada MD
[2018-12-25] MEDS: HUMALOG SUBQ SCH ×5 (00:02→22:37)
[2018-12-25] MEDS: ZOCOR PO SCH ×2 (00:06→22:36)
[2018-12-25] MEDS: VITAMIN D PO SCH ×2 (00:06→22:35)
[2018-12-25] MEDS: ARICEPT PO SCH ×2 (00:06→22:35)
[2018-12-25] MEDS: COLACE PO SCH ×2 (00:06→22:35)
[2018-12-25] MEDS: NAMENDA PO SCH ×3 (00:06→22:35)
[2018-12-25] MEDS: ELAVIL PO SCH ×2 (00:07→22:39)
[2018-12-25] MEDS: TYLENOL PO SCH ×4 (00:07→22:35)
[2018-12-25] MEDS: MIRAPEX PO SCH ×2 (00:07→22:36)
[2018-12-25] MEDS: PERIDEX MT SCH ×3 (00:08→22:34)
[2018-12-25 06:39] LABS: BASO# 0.02 X1000 (0.0-0.2); BASO% 0.2 % (0.0-0.8); EOS# 0.16 X1000 (0.0-0.7); EOS% 1.5 % (0.0-10.0); HEMATOCRIT 24.7 % (37.0-47.0); HEMOGLOBIN 7.9 g/dL (12.0-16.0); IMM GRAN# 0.04 X1000 (0.0-0.04); IMM GRAN% 0.4 % (0.0-0.5); LYMPH# 1.06 X1000 (1.2-3.4); LYMPH% 10.2 % (20.5-51.1); MCH 27.1 PG (27-31); MCV 84.9 FL (81-99); MONO# 0.56 X1000 (0.11-0.59); MONO% 5.4 % (1.7-9.3); MPV 9.8 FL (7.4-10.4); NEUT# 8.51 X1000 (1.4-6.5); NEUT% 82.3 % (42.2-75.2); PLT 101 X1000 (130-400); RBC 2.91 XMIL (4.2-5.4); RDW 14.2 % (11.5-14.5); WBC 10.35 X1000 (4.8-10.8)
[2018-12-25 06:49] LABS: AGAP 9; ALB/GLOB RATIO 1.2; ALKALINE PHOSPHATASE 76 U/L (32-104); BUN 14 mg/dL (8-22); CALCIUM 8.3 mg/dL (8.8-10.2); CHLORIDE 102 mmol/L (98-107); COSMO 282; CREATININE 0.7 mg/dL (0.5-0.9); ESTIMATED GFR > 60; GLUCOSE 206 mg/dL (70-104); GOT 14 U/L (10-30); GPT 6 U/L (10-36); MAGNESIUM 1.2 mg/dL (1.5-2.7); POTASSIUM 3.8 mmol/L (3.5-5.1); SODIUM 138 mmol/L (136-145); TCO2 27 mmol/L (25-35); TOTAL BILIRUBIN 0.42 mg/dL (0.20-1.00); TOTAL PROTEIN 5.6 g/dL (6.3-8.3)
[2018-12-25] MEDS: XARELTO PO SCH (08:08)
[2018-12-25] MEDS: PRILOSEC PO SCH (08:08)
[2018-12-25] MEDS: DUONEB (A & A) INH SCH (08:27)
[2018-12-25] MEDS: COZAAR PO SCH (09:15)
[2018-12-25] MEDS: FISH OIL CONCENTRATE PO SCH (09:15)
[2018-12-25] MEDS: IMDUR PO SCH (09:16)
[2018-12-25] MEDS: FERROUS SULFATE PO SCH (09:16)
[2018-12-25] MEDS: CELEXA PO SCH (09:16)
[2018-12-25] MEDS: ASPIRIN PO SCH (09:16)
[2018-12-25] MEDS: SYNTHROID PO SCH (09:19)
[2018-12-25] MEDS: NS 1,000 ML IV SCH ×2 (11:43→19:03)
[2018-12-25] MEDS ORDERED: MAGNESIUM SULFATE 2 GM/S.W.I. 2 GM/50 ML IVPB IV ONE (17:50)
--- NOTE | 2018-12-25 19:23 | PROGRESS NOTE ---
DATE: 12/25/2018 SUBJECTIVE: The patient was originally seen this morning. At that time, patient had improvement in her mental status change. The patient was more interactive. She moved all extremities. Throughout the day, patient's p.o. intake remains marginal, but has improved from yesterday. This evening, the patient is more interactive. She answers questions intermittently, appropriately. This is largely at her baseline. She denies fevers, chills, nausea, vomiting, or shortness of breath. Pain is controlled. OBJECTIVE: T-max 100 degrees, heart rate 101 to 115, respirations 14 to 18, blood pressure 137 to 189 over 60 to 91.General: No acute distress. Cardiovascular: Slightly tachycardic. Regular rhythm. No significant murmurs, rubs, or gallops. Pulmonary: Clear to auscultation anteriorly. Abdomen: Soft, nontender, nondistended. Positive bowel sounds. Extremities: Moves all extremities well. No significant clubbing, cyanosis, or edema. Dermatologic: Evaluation reveals no evidence of rash. LABORATORY DATA: White blood cell count 10.35, hemoglobin 7.9, hematocrit 24.7, platelet count 101,000, sodium 138, potassium 3.8, chloride 102, bicarb 27, BUN 14, creatinine 0.7, glucose 206, calcium 8.3, magnesium 1.2, total bilirubin 0.42, total protein 5.6, albumin 3.0, alkaline phosphatase 76, AST 14, ALT 6. ASSESSMENT AND PLAN: 1. Left hip fracture-patient is postoperative day #2. Postoperative orders will be per Dr. Han. Symptoms are currently reasonably controlled. 2. Alteration of mental status/somnolence-CT scan yesterday suggested multifocal encephalomalacia. A focus of low attenuation in the external capsule on the left was new, possibly representing a chronic or subacute infarct. Over the course of the day today, patient's alteration of mental status and somnolence has improved. She is approaching baseline. I suspect the patient's mental status change was anesthesia associated. We will remain aware. 3. Abnormal urinalysis-patient's urinalysis upon admission was largely unremarkable. Repeat urinalysis after surgery suggested large leukocytes. Culture thus far has been negative. At this point, with her history of Clostridium difficile colitis, we will hold off on further medical intervention. We will follow this. 4. Hypertension. Patient's blood pressure is labile, but reasonably controlled on her current regimen. 5. History of recent stroke-as above, CT scan suggested chronic encephalomalacia. The question of a new focus was noted. Clinically, patient is approaching baseline. I suspect this was subacute versus chronic, likely associated with her previous stroke. 6. Chronic obstructive pulmonary disease-we will continue DuoNeb therapy. 7. Dementia-we will continue patient's home regimen. She is approaching baseline. 8. Hypothyroidism-we will continue patient on replacement. 9. Hypomagnesemia-we will replete again today. 10. Leukocytosis-this likely is secondary to demargination. The patient's white blood cell count today is acceptable. 11. Diabetes-we will continue sliding scale insulin. 12. Anemia-we will continue to follow postoperatively. Should patient's hemoglobin, hematocrit drops further, we will consider transfusion tomorrow. 13. Disposition-at this point, patient continues to require halfway care in a hospital setting. We will plan discharge home once appropriate. cc: Eric Tejada MD
[2018-12-26] MEDS: SYNTHROID PO SCH (06:13)
[2018-12-26] MEDS: TYLENOL PO SCH ×3 (06:13→21:53)
[2018-12-26] MEDS: XARELTO PO SCH (06:13)
[2018-12-26] MEDS: PRILOSEC PO SCH (06:15)
[2018-12-26 06:21] LABS: HEMATOCRIT 23.5 % (37.0-47.0); HEMOGLOBIN 7.4 g/dL (12.0-16.0)
[2018-12-26] MEDS: HUMALOG SUBQ SCH ×4 (06:21→22:14)
[2018-12-26] MEDS: DUONEB (A & A) INH SCH (07:50)
[2018-12-26] MEDS: NS 1,000 ML IV SCH (10:44)
[2018-12-26] MEDS: FISH OIL CONCENTRATE PO SCH (10:45)
[2018-12-26] MEDS: ASPIRIN PO SCH (10:45)
[2018-12-26] MEDS: IMDUR PO SCH (10:45)
[2018-12-26] MEDS: NAMENDA PO SCH ×2 (10:45→21:53)
[2018-12-26] MEDS: CELEXA PO SCH (10:45)
[2018-12-26] MEDS: FERROUS SULFATE PO SCH (10:45)
[2018-12-26] MEDS: PERIDEX MT SCH ×2 (10:55→21:54)
[2018-12-26] MEDS: COZAAR PO SCH (11:13)
--- NOTE | 2018-12-26 12:21 | PROGRESS NOTE ---
DATE: 12/26/2018 HISTORY: The patient is a pleasant, 88-year-old female, who is 3 days status post intramedullary nailing of the left femur. She is currently resting comfortably. She does continue with confusion seems to be somewhat improved today. I did discuss with Dr. Tejada. PHYSICAL EXAMINATION: On the eft lower extremity, her dressing is intact. LABORATORY DATA: Hemoglobin and hematocrit is 7.4 and 23.5. IMPRESSION: Postoperative day #3 status post intramedullary nailing of the left femur. PLAN: At this point, we will continue with physical therapy. environmental services floor tech have been consulted for discharge planning. Again discussed Dr. Tejada and he is planning on giving her 1 unit of packed red blood cells. We anticipate discharge to rehab Friday. cc: MD Eric Thomas MD
--- NOTE | 2018-12-26 13:15 | PROGRESS NOTE ---
DATE: 12/26/2018 SUBJECTIVE: Overall, patient continues to improve. Mental status is approaching baseline. She has become much more interactive. Her p.o. intake is improving. Her pain is reasonably controlled postoperatively. There has been no evidence of fevers, chills, nausea, vomiting, or shortness of breath. OBJECTIVE: T-max 98.9 degrees, heart rate 96 to 101, respirations 16 to 18, blood pressure 137 to 179 over 52 to 91.General: No acute distress. Cardiovascular: Slightly tachycardic. Regular rhythm. No significant murmurs, rubs, or gallops. Pulmonary: Clear to auscultation bilaterally. Abdomen: Soft, nontender, nondistended. Positive bowel sounds. Extremities: No significant clubbing, cyanosis, or edema. Dermatologic: Evaluation reveals a wound that is clean, dry and intact. LABORATORY DATA: Hemoglobin 7.4, hematocrit 23.5. ASSESSMENT AND PLAN: 1. Left hip fracture-patient is postoperative day #3. Postoperative orders will continue per Dr. Han. We will continue physical therapy. I anticipate discharge to rehabilitation on Friday. 2. Alteration of mental status/excess somnolence-this was noted postoperative day #1. CT scan suggested multifocal encephalomalacia and a new low attenuation in the external capsule on the left. This represented chronic versus subacute infarct. As her symptoms could not be completely explained by this change, I suspect this was chronic associated with her previous stroke. Overall, patient's symptoms have improved considerably. She is approaching her baseline. 3. Abnormal urinalysis-this is quite interesting. Urinalysis upon admission was largely unremarkable. Urinalysis after surgery demonstrated significant leukocytes present. Culture thus far has suggested 10 to 20 colony-forming units of a gram-negative mahad. In the setting of a recent prolonged illness with Clostridium difficile colitis, I am very hesitant to treat with antibiotic intervention. We will repeat a urinalysis today. She is demonstrating no evidence of infection at present time. 4. Hypertension-patient has longstanding, labile hypertension. We will continue her current regimen for now. 5. History of recent stroke-we will continue to optimize the patient's medical and nonmedical management. Mental status is approaching baseline. 6. Anemia-the patient has postoperative anemia. In the setting of blood loss, recent stroke, and tachycardia, I do feel transfusion of 1 unit of packed red blood cells is most appropriate. We will order that today. 7. Chronic obstructive pulmonary disease-we will continue patient on DuoNeb therapy. 8. Dementia-as above, patient is approaching baseline. We will continue her home regimen. 9. Hypothyroidism-we will continue patient on replacement. 10. Hypomagnesemia-patient was repleted yesterday. We will remain aware. 11. Leukocytosis-this was noted upon admission, likely secondary to demargination. Since hospitalization, white blood cell count has normalized. 12. Diabetes-we will continue patient on sliding scale insulin. 13. Disposition-at this point, patient continues to require jail care in a hospital setting. We will plan discharge to rehabilitation once appropriate. cc: Eric Tejada MD
[2018-12-26 14:15] LABS: URINE SOURCE CATH
[2018-12-26 14:25] LABS: BILIRUBIN URINE NEGATIVE (NEGATIVE); BLOOD URINE NEGATIVE (NEGATIVE); COLOR YELLOW; GLUCOSE URINE 70 mg/dL (NEGATIVE); KETONE URINE NEGATIVE (NEGATIVE); LEUKOCYTES URINE NEGATIVE (NEGATIVE); NITRITE URINE NEGATIVE (NEGATIVE); PH URINE 6.5; PROTEIN URINE TRACE mg/dL (NEGATIVE); SP GRAVITY URINE 1.017; TURBIDITY URINE CLEAR (CLEAR); UR EPITHELIAL CELLS <10 /HPF (<10); URINE BACTERIA NEGATIVE /HPF; URINE RBC <10 /HPF (<10); URINE WBC <10 /HPF (<10); UROBILINOGEN URINE NORMAL (NORMAL)
[2018-12-26] MEDS: VITAMIN D PO SCH (21:52)
[2018-12-26] MEDS: ELAVIL PO SCH (21:52)
[2018-12-26] MEDS: ZOCOR PO SCH (21:53)
[2018-12-26] MEDS: ARICEPT PO SCH (21:53)
[2018-12-26] MEDS: MIRAPEX PO SCH (21:53)
[2018-12-26] MEDS: COLACE PO SCH (21:54)
[2018-12-27] MEDS: TYLENOL PO SCH ×3 (06:40→22:39)
[2018-12-27] MEDS: XARELTO PO SCH (06:40)
[2018-12-27] MEDS: SYNTHROID PO SCH (06:40)
[2018-12-27] MEDS: PRILOSEC PO SCH (06:40)
[2018-12-27 06:47] LABS: BASO# 0.02 X1000 (0.0-0.2); BASO% 0.2 % (0.0-0.8); EOS# 0.24 X1000 (0.0-0.7); EOS% 2.6 % (0.0-10.0); HEMATOCRIT 28.2 % (37.0-47.0); IMM GRAN# 0.02 X1000 (0.0-0.04); IMM GRAN% 0.2 % (0.0-0.5); LYMPH# 1.09 X1000 (1.2-3.4); LYMPH% 11.6 % (20.5-51.1); MCH 27.2 PG (27-31); MCHC 31.9 g/dL (33-37); MCV 85.2 FL (81-99); MONO# 0.49 X1000 (0.11-0.59); MONO% 5.2 % (1.7-9.3); MPV 9.9 FL (7.4-10.4); NEUT# 7.51 X1000 (1.4-6.5); NEUT% 80.2 % (42.2-75.2); PLT 144 X1000 (130-400); RBC 3.31 XMIL (4.2-5.4); RDW 14.6 % (11.5-14.5); WBC 9.37 X1000 (4.8-10.8)
[2018-12-27] MEDS: HUMALOG SUBQ SCH ×4 (07:16→22:44)
[2018-12-27] MEDS: CATAPRES PO PRN (07:19)
[2018-12-27] MEDS: DUONEB (A & A) INH SCH (08:03)
[2018-12-27] MEDS: NAMENDA PO SCH ×2 (09:15→22:39)
[2018-12-27] MEDS: IMDUR PO SCH (09:15)
[2018-12-27] MEDS: COZAAR PO SCH (09:15)
[2018-12-27] MEDS: FISH OIL CONCENTRATE PO SCH (09:15)
[2018-12-27] MEDS: CELEXA PO SCH (09:15)
[2018-12-27] MEDS: ASPIRIN PO SCH (09:15)
[2018-12-27] MEDS: FERROUS SULFATE PO SCH (09:16)
[2018-12-27] MEDS: PERIDEX MT SCH ×2 (09:39→22:41)
--- NOTE | 2018-12-27 09:50 | PROGRESS NOTE ---
DATE: 12/27/2018 HISTORY: Ms. Chapman was admitted on 12/22/2018 after a fall. She had a left hip intertrochanteric fracture. Seemed to be some particles of bone as well as some angulation. She also has a history of coronary artery disease, uncontrolled hypertension. Anyway, seems to be doing pretty well. Tolerating physical therapy. Their hope is to go to rehab tomorrow. OBJECTIVE: Vital Signs: Temperature 97.8 degrees, pulse 90, respirations 18, blood pressure 160/63. HEENT: Pupils are equal and round. Lungs: Clear in all lung [place]. Cardiovascular Examination: Regular rhythm and rate without murmur S3. Laboratory Data: Blood sugars 205, 202, 190. ASSESSMENT AND PLAN: 1. Left hip fracture. It is postop day #4, Dr. Han. Doing well with physical therapy. Plan is to go to rehab tomorrow. 2. Altered mental status, excessive somnolence noted, postop day #1. CT scan suggest suggested multifocal encephalomalacia I guess and new low-attenuation in the internal capsule on the left so this could represent chronic versus subacute infarct but she seems to be doing much better neurologically. 3. Abnormal urinalysis on admission. Urinalysis after surgery demonstrated significant leukocytosis. Culture thus far suggests colonization. She has had a recent illness with Clostridium difficile colitis so Dr. Reilly has been hesitant to give her antibiotics. 4. Hypertension. Blood pressure has been well controlled. She is running some higher pressures. She had one of 208/89. I am letting them give her clonidine as needed 0.1 mg. 5. History of recent stroke. 6. Anemia, postop acute blood loss anemia. I think they gave her 1 unit of packed red blood cells. Hematocrit seems to be stable. Hematocrit is 21 and hemoglobin is 9.0. 7. Chronic obstructive pulmonary disease. No troubles with breathing. She is on DuoNeb treatments. 8. Dementia. 9. Hypothyroidism. Appears to be euthyroid. Continue present thyroid medication. 10. Hypomagnesemia, which has been repleted. 11. Leukocytosis on admission, suspect from stress demargination. 12. Diabetes. Continue to follow sugars. Continue sliding scale. cc: MD Eric Campos MD
[2018-12-27] MEDS: ELAVIL PO SCH (22:39)
[2018-12-27] MEDS: VITAMIN D PO SCH (22:39)
[2018-12-27] MEDS: ARICEPT PO SCH (22:40)
[2018-12-27] MEDS: ZOCOR PO SCH (22:40)
[2018-12-27] MEDS: MIRAPEX PO SCH (22:40)
[2018-12-27] MEDS: COLACE PO SCH (22:41)
[2018-12-28] MEDS: CATAPRES PO PRN (05:17)
[2018-12-28] MEDS: XARELTO PO SCH (06:34)
[2018-12-28] MEDS: PRILOSEC PO SCH (06:34)
[2018-12-28] MEDS: SYNTHROID PO SCH (06:34)
[2018-12-28] MEDS: TYLENOL PO SCH ×2 (06:34→13:03)
[2018-12-28] MEDS: HUMALOG SUBQ SCH ×2 (06:40→12:35)
[2018-12-28] MEDS: DUONEB (A & A) INH SCH (07:56)
[2018-12-28] MEDS: FERROUS SULFATE PO SCH (08:26)
[2018-12-28] MEDS: ASPIRIN PO SCH (08:26)
[2018-12-28] MEDS: NAMENDA PO SCH (08:26)
[2018-12-28] MEDS: IMDUR PO SCH (08:26)
[2018-12-28] MEDS: COZAAR PO SCH (08:26)
[2018-12-28] MEDS: PERIDEX MT SCH (08:26)
[2018-12-28] MEDS: CELEXA PO SCH (08:26)
[2018-12-28] MEDS: FISH OIL CONCENTRATE PO SCH (08:28)
--- NOTE | 2018-12-28 10:50 | DISCHARGE SUMMARY ---
ADMISSION DATE: 12/22/2018 DISCHARGE DATE: 12/28/2018 ADMISSION DIAGNOSIS: Fall. DISCHARGE DIAGNOSES: 1. Left hip fracture status post surgical intervention by Dr. Han. 2. Alteration of mental status/excess somnolence in the postoperative period, improved to baseline. 3. Abnormal urinalysis as described below. 4. Hypertension, present on arrival. 5. History of recent stroke number. 6. Anemia secondary to blood loss. 7. Chronic obstructive pulmonary disease, present on arrival. 8. Dementia, present on arrival. 9. Hypothyroidism, present on arrival. 10. Hypomagnesemia, resolved. 11. Leukocytosis, present on arrival, likely secondary to demargination. 12. Diabetes, present on arrival. CONSULTATIONS: Dr. Han with Orthopedic Surgery was consulted for further evaluation and management of left hip fracture. PROCEDURES: 1. A intramedullary nailing of the left femur was performed on 12/24/[address] Han. 2. A CT scan of the head was performed on 12/24/2018, which revealed multifocal encephalomalacia. Focus of low attenuation in the external capsule on the left was not present previously on 09/28/2018. Although it still may be chronic, a subacute lacunar infarct cannot be completely excluded. HISTORY AND PHYSICAL EXAMINATION: See admit note. PHYSICAL EXAMINATION PRIOR TO DISCHARGE: Vital signs: Temperature 97.8 degrees, heart rate 70, respirations 16, blood pressure is 127/39. General: Elderly, no acute distress. Cardiovascular: Regular rate and rhythm. No significant murmurs, rubs, or gallops. Pulmonary: Clear to auscultation bilaterally. Abdomen: Soft, nontender, and nondistended. Positive bowel sounds. Extremities: Moves all extremities well with some limitation of movement of the left lower extremity. No significant clubbing, cyanosis, or edema. Dermatologic: Evaluation reveals a clean, dry, and intact incision of the left hip. LABORATORY DATA PRIOR TO DISCHARGE: None. HOSPITAL COURSE: The patient was admitted as per history and physical examination. Hospital course per condition is as follows: 1. Left hip fracture - Upon admission, patient was noted to have a left hip fracture, per x-ray. Dr. Han was immediately consulted. On 12/24/2018, patient was taken for surgical intervention. With exception of postoperative somnolence, she tolerated this quite well. Patient will be discharged to rehabilitation with physical therapy as directed by Dr. Han. We will continue as-needed oxycodone, although she has not required a significant amount while hospitalized. The patient's antonio will need to be removed per Dr. Han's recommendation. We will continue Xarelto for a total of 21 days postoperative. 2. Alteration of mental status/excess postoperative somnolence - Patient was diagnosed postoperative day #1. CT scan of the head was as described above. With time, patient returned to her baseline. I suspect this was anesthesia associated. This will need to be followed as an outpatient. 3. Abnormal urinalysis - This is quite curious. Upon admission, urinalysis was largely unremarkable. Urinalysis, immediately after surgery, demonstrated significant leukocytes present. She grew E coli, but only 10 to 20,000 colony-forming units. She demonstrated no evidence of infection including fevers, chills, or dysuria. Because of a recent history of Clostridium difficile colitis, I held off on antibiotic intervention. Repeat urinalysis on 12/26/2018, revealed no evidence of bacteria or leukocytes present. At this point, we will continue treating this nonmedically. We will need to follow this as an outpatient as well. 4. Hypertension - Patient has longstanding, labile disease. She was continued on her home regimen while hospitalized. On the day prior to discharge, blood pressure spiked into the 200 range. We will add a low-dose amlodipine at bedtime. This will need to be followed as well. At this point, with recent stroke, allowing this to remain slightly elevated would be most appropriate. 5. History of recent stroke - The patient is treated with optimum medical management. She does have an expressive aphasia which is her new baseline. CT scan, while hospitalized, returned as described above. I suspect the new area is more likely chronic versus subacute. We will continue to optimize her medical and nonmedical management. 6. Anemia - While hospitalized, patient was noted to have an anemia in the postoperative phase. The patient was treated with 1 unit of packed red blood cells. Hemoglobin and hematocrit were stable at discharge. We will continue iron replacement three days per week. We will need to follow this as well. 7. Chronic obstructive pulmonary disease - Patient has longstanding disease. She was treated with DuoNeb while hospitalized. We will continue this in rehab. 8. Dementia - The patient has longstanding disease. She is treated with Namenda and Aricept therapy. At time of discharge, she was approaching baseline. 9. Hypothyroidism - Patient was continued on thyroid replacement while hospitalized. We will remain aware. We will continue this as an outpatient. 10. Hypomagnesemia - Patient was treated while hospitalized with replacement. We will remain aware. 11. Leukocytosis - Upon admission, patient was noted to have a considerable leukocytosis. This likely was secondary to demargination. White blood cell count on the day prior to discharge was within normal limits. 12. Diabetes - The patient has longstanding disease. She will continue sliding scale insulin as an outpatient. DISCHARGE CONDITION: Stable. DISPOSITION: Discharged to rehabilitation. MEDICATIONS: 1. Acetaminophen 1000 mg every 8 hours as needed. 2. Amitriptyline 50 mg at bedtime. 3. Aspirin 325 mg daily. 4. Vitamin D3 1000 units at bedtime. 5. Celexa 20 mg daily. 6. Vitamin B12 1000 mcg IM monthly. 7. Colace 200 mg at bedtime, hold for loose stools. 8. Donepezil 10 mg at bedtime. 9. DuoNeb daily. 10. Imdur 30 mg daily. 11. Lansoprazole 30 mg daily. 12. Levothyroxine 175 mcg daily. 13. Losartan 100 mg daily. 14. Milk of magnesia as needed. 15. Namenda 10 mg twice daily. 16. Fish oil 1000 mg daily. 17. Zofran 4 mg every 6 hours as needed. 18. Oxycodone 5 mg every 3 hours as needed. 19. Mirapex 0.125 mg at bedtime. 20. Xarelto 10 mg to be given prior to supper for a total of 21 days. This will be completed on 01/13/2019. 21. Simvastatin 20 mg at bedtime. 22. Amlodipine 2.5 mg at bedtime. 23. Iron sulfate 325 mg on Friday, Friday, and Friday. 24. Sliding scale insulin with meals. FOLLOWUP: The patient is to follow up with me upon completion of rehabilitation. Patient is to follow up with Dr. Han as arranged. CODE STATUS: Patient is a DNR level 1. cc: Eric Tejada MD
[2018-12-28 12:11] VITALS: BP 179/60
[2019-01-11] MEDS ORDERED: CYANOCOBALAMIN IM SCH (09:00)
== END 2018-12-28 13:36 | DRG 481 ==
LOC: SUPCPDRO → ED 20:36 → 4N 23:28 → SUATTDRO 23:28 → 4N 12-23 15:18
PROVIDERS: ADMIT Internal Medicine; ATTEND Internal Medicine
CPT/HCPCS: 36430; 51702; 70450; 71010; 71045; 73502; 76000; 80048; 80053; 81001; 82948; 83735; 85014; 85018; 85025; 85610; 85730; 86850; 86900; 86901; 86920; 87077; 87088; 87186; 93005; 93010; 94640; 94761; 94799; 96374; 96375; 97110; 97162; 97530; 99285; A9270; J0131; J0360; J0690; J1170; J1650; J1815; J2270; J2405; J3010; J3475; J7030; P9016; XXXXX